=== PATIENT | female | born 1980 | race Caucasian/White ===

== ENCOUNTER 2018-07-02 12:54 | Emergency (ER) | payer BC, MEDICAID ==
[2018-07-02 13:03] VITALS: BP 107/72; PULSE 80; RESP 18; TEMP 98.5; O2SAT 97
--- NOTE | 2018-07-02 13:44 | C.PDOC ---
History Of Present Illness 37 yo female c/o left ankle pain since yesterday s/p tripping. PT notes she iced it yesterday but the swelling worsened today prompting ED visit. PT notes "this happens a lot, I always sprain my ankle." Denies changes in sensation or other areas of trauma. Time Seen by Provider: 07/02/18 13:18 Chief Complaint (Nursing): Lower Extremity Problem/Injury History Per: Patient History/Exam Limitations: no limitations Onset/Duration Of Symptoms: Hrs Current Symptoms Are (Timing): Still Present - Ankle/Foot Description Of Injury: Twisted Past Medical History Vital Signs: Last Vital Signs Temp 98.5 F 07/02/18 13:02 Pulse 80 07/02/18 13:02 Resp 18 07/02/18 13:02 BP 107/72 07/02/18 13:02 Pulse Ox 97 07/02/18 13:02 Family History: States: Unknown Family Hx - Social History Hx Alcohol Use: No Hx Substance Use: No - Immunization History Hx Tetanus Toxoid Vaccination: No Hx Influenza Vaccination: No Hx Pneumococcal Vaccination: No Review Of Systems Except As Marked, All Systems Reviewed And Found Negative. Physical Exam - Physical Exam Appears: Well, Non-toxic, No Acute Distress Skin: Normal Color, Warm, Dry Head: Atraumatic, Normacephalic Eye(s): bilateral: Normal Inspection, EOMI Nose: Normal Neck: Normal, Normal ROM, Supple Chest: Symmetrical Respiratory: No Accessory Muscle Use Back: Normal Inspection Extremity: No Normal ROM (decreased secondary to pain), Tenderness (swelling and tenderness to the lateral ankle), No Pedal Edema, No Calf Tenderness, Capillary Refill (<2 sec), Swelling Extremity: Bilateral: Normal Color And Temperature Pulses: Left Dorsalis Pedis: Normal, Right Dorsalis Pedis: Normal Neurological/Psych: Oriented x3, Normal Speech, Normal Motor, Normal Sensation ED Course And Treatment O2 Sat by Pulse Oximetry: 97 - Other Rad Ankle XR Interpretation: no fx or disclocation Progress Note: Pt declined pain medication. Chad wrap and air cast applied by crane service technician. Crutched given . Instructed to follow up with ortho in 1-2 days and RICE. Disposition - Disposition Referrals: Mina Omer III, MD [Staff Provider] - Disposition: HOME/ ROUTINE Disposition Time: 13:59 Condition: STABLE Additional Instructions: Rest , ice and elevate the area. FOllow up with the bone doctor in 1-2 days. Instructions: Ankle Sprain (DC) Forms: [facility] (Italian), Work Excuse - Clinical Impression Clinical Impression: Ankle sprain
--- NOTE | 2018-07-02 15:04 | RAD ---
Left ankle three views HISTORY: Trauma. Comparison: None available. Findings: Prominent lateral malleolar soft tissue swelling. Narrowing of the tibiotalar joint space. No evidence of acute displaced fracture or dislocation. Plantar and dorsal calcaneal spurring. Impression: Prominent lateral malleolar soft tissue swelling. Narrowing of the tibiotalar joint space. No evidence of acute displaced fracture or dislocation. Plantar and dorsal calcaneal spurring. If pain persists, consider correlation with MRI.
== END 2018-07-02 14:14 | disposition home or self-care (01) ==
LOC: C.ER 12:54
DX: S93.402A Sprain of unspecified ligament of left ankle, initial encounter (principal); W01.0XXA Fall on same level from slipping, tripping and stumbling without subsequent striking against object, initial encounter